=== PATIENT | female | born 1945 | race Caucasian/White ===

== ENCOUNTER → 2016-04-06 | Outpatient (CLI) | payer OTHER ==
--- NOTE | 2016-04-06 18:48 | DX ---
Chest, PA and Lateral Upright Views April 06, 2016 at 6:20 p.m. Clinical History: 70-year-old female with a cough for two weeks, with bronchitis and sinusitis. Comparison Study: Chest, dated March 29, 2008. Findings: The cardiac and mediastinal silhouettes are normal in size. There is no focal alveolar cons olidation, pleural effusion, peripheral interstitial edema, or pneumothorax. There are degenerative f eatures of the thoracic spine. Impression: No acute abnormality.
== END ==
LOC: GIMAGING 18:19
PROVIDERS: ATTEND Nurse Practitioner Family
DX: R05 Cough (principal)
CPT/HCPCS: 71020-PO

== ENCOUNTER → 2016-04-08 | Outpatient (CLI) | payer OTHER ==
--- NOTE | 2016-04-08 13:06 | MA ---
Screening Digital Mammogram With iCAD Analysis Clinical Indications: Routine screening. The patient has had reduction mammoplasty. Technique: Standard cephalocaudal projections are obtained. Digital breast tomosynthesis was performe d in the MLO projection with reconstruction at 1.0 mm slice thickness and composite MLO views reconst ructed. This examination is processed by the iCAD computer aided detection system. Comparison: December 2014, December 2013, August 2012, July 2011, January 2010, January 2009. Breast density: Type A: Fatty. Findings: CAD was reviewed. No masses, suspicious calcifications or secondary signs of malignancy are seen. There has been no significant change in the appearance of either breast. Impression: Negative mammogram. BI-RADS 1. Recommendation: Routine mammographic screening in one year. [facility] will send a result letter to the patient. Negative mammography should not preclude additional workup of a clinically suspicious finding. The patient's information is entered into a reminder system with a target due date for her next mammo gram.
== END ==
LOC: FIMAGING 10:17
DX: Z12.31 Encounter for screening mammogram for malignant neoplasm of breast (principal)
CPT/HCPCS: G0202

== ENCOUNTER 2016-11-14 11:27 | Day surgery (SDC) | payer OTHER ==
[2016-11-14] MEDS ORDERED: ceFAZolin 2 GM/DEXTROSE 100 ML IV ONE (12:03)
--- NOTE | 2016-11-14 13:12 | PDHPUP ---
History & Physical Update H&P update statement: This history and physical update is based on an assessment of the patient which was completed after admission or registration (within 24 hours), but prior to the surgery/procedure. H&P update: no change in patient's condition since H&P completed
[2016-11-14] MEDS ORDERED: LR 1,000 ML IV ONE (14:00)
[2016-11-14] MEDS ORDERED: LIDOCAINE 1% 2 ML INJ ID PRN (14:10)
--- NOTE | 2016-11-14 15:01 | PDANEPAE ---
ANE Past Medical History - Cardiovascular History Hx Hypertension: Yes Hx Arrhythmias: No Hx Chest Pain: No Hx Coronary Artery / Peripheral Vascular Disease: No Hx CHF / Valvular Disease: No Hx Palpitations: No - Pulmonary History Hx COPD: No Hx Asthma/Reactive Airway Disease: Yes Hx Recent Upper Respiratory Infection: No Hx Oxygen in Use at Home: No Hx Sleep Apnea: No Sleep Apnea Screening Result - Last Documented: Negative Pulmonary History Comment: MILD ASTHMA ENVIRONMENTAL TRIGGERS - Neurologic History Hx Cerebrovascular Accident: No Hx Seizures: No Hx Dementia: No - Endocrine History Hx Diabetes: Yes Endocrine History Comment: NIDDM. HYPOTHYROID - Renal History Hx Renal Disorders: Yes Renal History Comment: UA INCONT ISSUES - Cancer History Hx Cancer: No - GI History Hx Gastrointestinal Disorders: No Gastrointestinal History Comment: COLONOSCOPY X3 - Other Health History Other Health History: ESSENTIAL TREMOR GETS BOTOX INJECTION 4X YR MOST RECENT 2016. SPINAL STENOSIS. DRY EYE - Chronic Pain History Chronic Pain: No - Surgical History Prior Surgeries: UMBILICAL HERNIA REPAIR 2006. HYSTERECTOMY/BLADDER REPAIR. GALINA BREAST REDUCTION. RITIKA. T & A. LASIX OU ANE Review of Systems - Exercise capacity METS (RN): 4 METS ANE Patient History - Allergies Allergies/Adverse Reactions: amoxicillin Allergy (Verified 11/14/16 12:21) ampicillin Allergy (Verified 11/14/16 12:21) Penicillins Allergy (Verified 11/14/16 12:20) - Home Medications Home Medications: Estradiol HS 11/05/16 [Last Taken Unknown] Levothyroxine DAILY06 11/05/16 [Last Taken Unknown] Metformin HCl ER HS 11/05/16 [Last Taken Unknown] Paxil HS 11/05/16 [Last Taken Unknown] Restasis Opht Drops(*) DAILY 11/05/16 [Last Taken Unknown] TOPIRAMATE DAILY06 11/05/16 [Last Taken Unknown] Triamterene/Hydrochlorothiazid DAILY06 11/05/16 [Last Taken Unknown] Verapamil DAILY06 11/05/16 [Last Taken Unknown] - NPO status NPO Since - Liquids (Date): 11/13/16 NPO Since - Liquids (Time): 22:00 NPO Since - Solids (Date): 11/13/16 NPO Since - Solids (Time): 18:00 - Smoking Hx Smoking Status: Never smoked ANE Labs/Vital Signs - Vital Signs Blood Pressure: 165/79 Heart Rate: 69 Respiratory Rate: 14 O2 Sat (%): 92 Height: 157.48 cm Weight: 74.389 kg ANE Physical Exam - Airway Neck exam: FROM Mallampati Score: Class 2 - ASA Status ASA Status: III
[2016-11-14] MEDS ORDERED: BUPIVACAINE 0.25% 30 ML SDV ONE ×2 (15:05→15:09)
[2016-11-14] MEDS ORDERED: ESTROGENS,CONJUGATED 30 GM CRTUBE VG ONE (15:06)
[2016-11-14] MEDS ORDERED: MIDAZOLAM 2 MG/2 ML VIAL ONE (15:06)
[2016-11-14] MEDS ORDERED: fentaNYL 100 MCG/2 ML INJ ONE (15:08)
[2016-11-14] MEDS ORDERED: PROPOFOL 200 MG/20 ML VIAL ONE (15:11)
[2016-11-14] MEDS ORDERED: METOCLOPRAMIDE 10 MG/2 ML VIAL ONE (15:45)
[2016-11-14] MEDS ORDERED: ONDANSETRON 4 MG/2 ML VIAL ONE (15:45)
--- NOTE | 2016-11-14 16:41 | POSTOPPROG ---
Post Op Note Date of Operation: 11/14/16 Surgeon: Lori Bright (# [id number]) Anesthesia: LMA Pre-op Diagnosis: RODGER Post-op Diagnosis: RODGER Procedure: Retropubic urethral sling, cysto Findings: See op note Inf/Abcess present in the surg proc area at time of surgery?: No EBL: 50-100 (50 cc) Complications: None Specimen(s): None
[2016-11-14] MEDS ORDERED: PROMETHAZINE HCL 25 MG/ML INJ IVP PRN (16:57)
[2016-11-14] MEDS ORDERED: NALOXONE HCL 0.4 MG/ML INJ IVP PRN (16:57)
[2016-11-14] MEDS ORDERED: LR 500 ML IV PRN (16:57)
[2016-11-14] MEDS ORDERED: fentaNYL 100 MCG/2 ML INJ IVP PRN (16:57)
[2016-11-14] MEDS ORDERED: ONDANSETRON 4 MG/2 ML VIAL IVP PRN (16:57)
--- NOTE | 2016-11-14 16:58 | POSTANESTH ---
Post Anesthetic Evaluation Cardiovascular Status: Normal, Stable Respiratory Status: Normal, Stable Level of Consciousness/Mental Status: Can Participate in Eval Pain Control: Adequate, Prn Tx Ordered Nausea/Vomiting Control: Adequate, Prn Tx Ordered Complications Possibly Related to Anesthesia: None Noted
[2016-11-14 17:33] VITALS: TEMP 97.7
[2016-11-14] MEDS ORDERED: HYDROCODONE/APAP 10/325 TAB PO PRN (17:35)
[2016-11-14] MEDS ORDERED: HYDROCODONE/APAP 10/325 TAB ONE (17:40)
[2016-11-14 17:44] VITALS: O2SAT 93
--- NOTE | 2016-11-14 18:36 | GOP ---
[f rep st] OPERATIVE REPORT DATE OF OPERATION: 11/14/2016 SURGEON: Lori Bright MD ANESTHESIA: Laryngeal mask. PREOPERATIVE DIAGNOSIS: Stress urinary incontinence. POSTOPERATIVE DIAGNOSIS: Stress urinary incontinence. PROCEDURE PERFORMED: 1. Transvaginal retropubic urethral sling. 2. Cystourethroscopy. FINDINGS: Mild cystocele in dorsal lithotomy position under anesthesia. Otherwise, the patient was noted to have postmenopausal atrophic vaginitis. SPECIMENS: None. ESTIMATED BLOOD LOSS: 50 cc. INDICATIONS FOR THE PROCEDURE: This woman has had issues with stress incontinence and has opted to undergo surgical therapy. The indications for the procedures as well as potential risks and complications were discussed with the patient preoperatively. She appeared to understand, her questions were answered, and she wished to proceed. Written informed surgical consent was thereafter obtained. DESCRIPTION OF PROCEDURE: The patient is brought to the operating room and administered laryngeal mask anesthesia. She was carefully placed in the low lithotomy position on the operating room table with Ja stirrups. The abdomen and genitalia were sterilely prepped with Betadine scrub and paint and then draped in the usual sterile fashion. 2-0 silk sutures were used for labial retraction and removed at the conclusion of the case. A weighted vaginal speculum was placed in the posterior vaginal vault. A 16-Uzbek Stein catheter was placed in the bladder and the bladder was drained of all urine and then clamped. It was intermittently unclamped and drained throughout the operation. The bladder neck, urethra, and urethral meatus were visualized along the anterior vaginal wall. A total of 15 cc of 0.5% Marcaine with epinephrine was used for local anesthetic along the anterior vaginal wall and for hydrodistention purposes. A longitudinal midline anterior vaginal wall incision was made over the mid urethra with a scalpel. Metzenbaum scissors were then used to dissect along the periurethral fascia lateral to the urethra on each side. I was ultimately able to gently dissect until the inferior pubis could be palpated through the incision. This was done bilaterally. The lower abdominal midline was then identified. Two small nicks in the skin were made approximately 1.5 cm lateral to the suprapubic midline on each side just cephalad to the superior margin of the pubic bone. A hemostat was used to dissect the subcutaneous tissue. The patient was then placed in steep Trendelenburg position. The SPARC retropubic urethral sling system was then brought onto the field. The trocars with the sling system were then placed from the abdominal wound and guided with my finger through the vaginal incision on each side. Before doing this, the bladder was completely drained via the Stein catheter. Once the trocars were in place, the Stein was removed and cystoscopy performed with a 70 degree lens and a 25-Uzbek sheath. Urethra was unremarkable. The bladder revealed a small moira through the mucosa along the right anterolateral aspect as a result of the right-sided trocar. This trocar was then removed and repositioned more laterally. Cystoscopy was again performed and the bladder was intact without any evidence of foreign body. The Stein catheter was then reinserted and the bladder drained. The retropubic urethral mesh was then brought onto the field and secured to the trocars in appropriate fashion. The trocars were then pulled through the anterior abdominal wall in order to bring the mesh through the retropubic space lateral to the urethra on each side. Care was taken to ensure that the mesh was not twisted. The excess plastic was then cut in the suprapubic region with scissors. The remaining plastic was then removed by grabbing the plastic on each side with hemostatic clamps. However, before doing so, an 8 Hegar dilator was placed between the mesh at the level of the mid urethra and the urethra itself. The mesh was then confirmed to be in proper position along the mid urethra without excessive tension. The Hegar dilator was removed. The excess mesh was cut from the skin surface along the anterior abdominal wall. Hemostasis was present at this point. The anterior vaginal incision was closed with running 2-0 Vicryl suture. The suprapubic incisions were closed with 4-0 Monocryl subcuticular suture in a running fashion , followed by application of Dermabond. The Stein catheter was connected to gravity drainage and the urine was completely clear at this point. A Premarin- impregnated vaginal packing was then inserted. The labial retraction stitches were removed. The patient was then taken out of dorsal lithotomy position and transferred to her bed. She was awakened. She tolerated the procedure well overall. COMPLICATIONS: None. DISPOSITION: She was transferred to recovery in stable condition and will be given instructions to remove the vaginal packing in 24 hours and remove the Stein catheter in 72 hours. /[id number]/MODL MTDD
[2016-11-14 19:03] VITALS: BP 165/68; PULSE 58; RESP 15
== END 2016-11-14 19:04 | disposition home or self-care (01) ==
LOC: FSGY 11:27
PROVIDERS: ATTEND Specialist
PROC: 0TUC0JZ Supplement Bladder Neck with Synthetic Substitute, Open Approach (ICD-10-PCS; principal; 2016-11-14 13:00)
DX: N39.3 Stress incontinence (female) (male) (principal); N81.11 Cystocele, midline; N95.2 Postmenopausal atrophic vaginitis; R33.9 Retention of urine, unspecified; E11.9 Type 2 diabetes mellitus without complications; I10 Essential (primary) hypertension; E03.9 Hypothyroidism, unspecified; E78.5 Hyperlipidemia, unspecified; Z87.440 Personal history of urinary (tract) infections; Z88.0 Allergy status to penicillin
CPT/HCPCS: C1771; J0171; J0690; J2250; J2405; J2704; J2765; J3010

== ENCOUNTER → 2017-01-02 | Outpatient (CLI) | payer OTHER | LOC: FIMAGING 13:24 | DX: M25.561 Pain in right knee (principal); M25.562 Pain in left knee | CPT/HCPCS: 36415-PO ==

== ENCOUNTER → 2017-08-05 | Outpatient (CLI) | payer OTHER | LOC: FIMAGING 14:05 | PROVIDERS: ATTEND Internal Medicine | DX: Z12.31 Encounter for screening mammogram for malignant neoplasm of breast (principal) ==

== ENCOUNTER 2018-05-19 07:49 | Day surgery (SDC) | payer OTHER ==
--- NOTE | 2018-05-19 07:56 | PDHPUP ---
History & Physical Update H&P update statement: This history and physical update is based on an assessment of the patient which was completed after admission or registration (within 24 hours), but prior to the surgery/procedure. H&P update: H&P reviewed & patient examined, no change in patient's condition since H&P completed
--- NOTE | 2018-05-19 07:56 | PDGENHP ---
History and Physical History and Physical: 72 Y F c ovarian cancer needs venous access port to begin chemotherapy. PMH: HTN, DM, hypothyroid, essential tremor. PSH: hysterectomy 25 Y ago for fibroids, tonsils, kanchan, eye, bladder sling. Meds: advil, esradiaol, levothyroxine, metformin paroxetine, topiramate, preservision, triamterene/hctz, verapamil. All: PCN, amoxicillin Social: , retired etiology teacher Fam: mom colon, possibly ovarian.. PE: alert, nad ncat, mmm ctab rrr abd soft, nt ext wwp skin warm and dry nl mood and affect 72 Y F c ovarian CA. Power port placement c flouro. Risks and options discussed.
[2018-05-19] MEDS ORDERED: VANCOMYCIN PHARMACY TO DOSE MISC ONE (07:57)
[2018-05-19] MEDS ORDERED: LR 1,000 ML IV ONE (07:58)
[2018-05-19] MEDS ORDERED: BUPIVACAINE 0.5% 30 ML SDV ONE (08:06)
[2018-05-19] MEDS ORDERED: VANCOMYCIN HCL/NORMAL SALINE 250 ML IV ONE (08:30)
--- NOTE | 2018-05-19 09:13 | PDANEPAE ---
ANE History of Present Illness ovarian Ca s/f R SC Port placement ANE Past Medical History - Cardiovascular History Hx Hypertension: Yes Hx Arrhythmias: No Hx Chest Pain: No Hx Coronary Artery / Peripheral Vascular Disease: No Hx CHF / Valvular Disease: No Hx Palpitations: No - Pulmonary History Hx COPD: No Hx Asthma/Reactive Airway Disease: Yes Hx Recent Upper Respiratory Infection: No Hx Sleep Apnea: No Pulmonary History Comment: MILD ASTHMA ENVIRONMENTAL TRIGGERS - Neurologic History Hx Cerebrovascular Accident: No Hx Seizures: No Hx Dementia: No - Endocrine History Hx Diabetes: Yes Endocrine History Comment: NIDDM. HYPOTHYROID - Renal History Hx Renal Disorders: Yes Renal History Comment: UA INCONT ISSUES - Liver History Hx Hepatic Disorders: No - Neurological & Psychiatric Hx Hx Neurological and Psychiatric Disorders: No - Cancer History Hx Cancer: No - GI History Hx Gastrointestinal Disorders: No Gastrointestinal History Comment: COLONOSCOPY X3 - Other Health History Other Health History: ESSENTIAL TREMOR GETS BOTOX INJECTION 4X YR MOST RECENT 2016. SPINAL STENOSIS. DRY EYE - Chronic Pain History Chronic Pain: No - Surgical History Prior Surgeries: UMBILICAL HERNIA REPAIR 2006. HYSTERECTOMY/BLADDER REPAIR. GALINA BREAST REDUCTION. RITIKA. T & A. LASIX OU ANE Review of Systems Review of Systems: - Exercise capacity METS (RN): 4 METS ANE Patient History - Allergies Allergies/Adverse Reactions: amoxicillin Allergy (Verified 11/14/16 12:21) ampicillin Allergy (Verified 11/14/16 12:21) Penicillins Allergy (Verified 11/14/16 12:20) - Home Medications Home medications: home medication list seen and reviewed Home Medications: Estradiol HS 11/05/16 [Last Taken 05/18/18] Levothyroxine DAILY06 11/05/16 [Last Taken 05/19/18] Metformin HCl ER HS 11/05/16 [Last Taken 05/18/18] Paxil HS 11/05/16 [Last Taken 05/18/18] Restasis Opht Drops(*) DAILY 11/05/16 [Last Taken 05/18/18] TOPIRAMATE DAILY06 11/05/16 [Last Taken 05/19/18] Triamterene/Hydrochlorothiazid DAILY06 11/05/16 [Last Taken 05/19/18] Verapamil DAILY06 11/05/16 [Last Taken 05/19/18] - NPO status NPO Status: no food or drink >8 hours NPO Since - Liquids (Date): 05/19/18 NPO Since - Liquids (Time): 05:45 (meds with sips) NPO Since - Solids (Date): 05/18/18 NPO Since - Solids (Time): 18:00 - Anes Hx Anes Hx: no prior problems - Smoking Hx Smoking Status: Never smoked - Alcohol Use Alcohol Use: Rarely - Family Anes Hx Family Anes Hx: none ANE Labs/Vital Signs - Vital Signs Blood Pressure: 153/67 Heart Rate: 65 Respiratory Rate: 14 O2 Sat (%): 95 Height: 157.48 cm Weight: 70.307 kg ANE Physical Exam - Airway Neck exam: FROM Mallampati Score: Class 2 Mouth exam: poor dentition - Pulmonary Pulmonary: no respiratory distress - Cardiovascular Cardiovascular: regular rate and rhythym - ASA Status ASA Status: III ANE Anesthesia Plan Anesthesia Plan: GA w LMA (possibly propofol only) Total IV Anesthesia: Yes
[2018-05-19] MEDS ORDERED: PROPOFOL/EMULSION 500 MG/50 ML BOTTLE IV ONE (10:03)
[2018-05-19] MEDS ORDERED: fentaNYL 100 MCG/2 ML INJ ONE (10:04)
[2018-05-19] MEDS ORDERED: LIDOCAINE 2% 100 MG/5 ML SYR ONE (10:06)
--- NOTE | 2018-05-19 10:34 | POSTOPPROG ---
Post Op Note Date of Operation: 05/19/18 Surgeon: Néstor Yeager Anesthesia: GET(General Endotracheal) Pre-op Diagnosis: ovarian CA Post-op Diagnosis: same Procedure: power port placement with flouro Findings: good position and flow Inf/Abcess present in the surg proc area at time of surgery?: No EBL: Minimal Complications: none
[2018-05-19] MEDS ORDERED: HYDROCODONE/APAP 5/325 TAB PO PRN (11:23)
[2018-05-19] MEDS ORDERED: ACETAMINOPHEN 500 MG TAB PO PRN (11:23)
[2018-05-19] MEDS ORDERED: ALBUTEROL 3 ML DEYVIAL IH PRN (11:23)
[2018-05-19] MEDS ORDERED: ONDANSETRON 4 MG/2 ML VIAL IVP PRN (11:23)
[2018-05-19] MEDS ORDERED: NALOXONE HCL 0.4 MG/ML INJ IVP PRN (11:23)
[2018-05-19] MEDS ORDERED: PROMETHAZINE HCL 25 MG/ML INJ IVP PRN (11:23)
[2018-05-19] MEDS ORDERED: METOCLOPRAMIDE 10 MG/2 ML VIAL IVP PRN (11:23)
[2018-05-19] MEDS ORDERED: fentaNYL 100 MCG/2 ML INJ IVP PRN (11:23)
[2018-05-19] MEDS ORDERED: PHENYLEPHRINE HCL 100 MCG/ML SYR IVP PRN (11:23)
[2018-05-19] MEDS ORDERED: oxyCODONE IR 5 MG TAB PO PRN (11:23)
[2018-05-19] MEDS ORDERED: LABETALOL HCL 5 MG/ML 20 ML MDV IVP PRN (11:23)
[2018-05-19] MEDS ORDERED: LR 500 ML IV PRN (11:23)
[2018-05-19] MEDS ORDERED: MEPERIDINE 25 MG/0.5 ML AMP IVP PRN (11:23)
[2018-05-19] MEDS ORDERED: DEXAMETHASONE 4 MG/ML VIAL IVP PRN (11:23)
[2018-05-19 12:26] VITALS: BP 132/65
--- NOTE | 2018-05-21 06:10 | GOP ---
[f rep st] OPERATIVE REPORT DATE OF OPERATION: 05/19/2018 SURGEON: Néstor Yeager MD ANESTHESIOLOGIST: Dr. Medrano. PREOPERATIVE DIAGNOSIS: Ovarian cancer. POSTOPERATIVE DIAGNOSIS: Ovarian cancer. PROCEDURE PERFORMED: Right subclavian port placement with fluoroscopic guidance. FINDINGS: The patient was found to have good position and flow of the catheter. DESCRIPTION OF PROCEDURE: The patient was taken to the operating room where she received IV sedation and monitored anesthesia care by Dr. Medrano. She was placed in supine position, prepped and draped i n the usual sterile fashion. Operative site was infiltrated with 0.5% Marcaine. Then, a direct stic k was made in the right subclavian vein. Guidewire was introduced and passed into the right atrium. Position was confirmed with fluoroscopy. A subcu pocket was made in the 2nd intercostal space, agai n using 0.5% Marcaine. A port tubing was passed from that pocket to the subclavian insertion site. It was trimmed to the appropriate length using fluoroscopic guidance and then introduced through the introducer sheath and dilator system into the right atrium. Good backflow was achieved. The cathete r was flushed with heparin and saline. Port was secured to the fascia with 3-0 Vicryl sutures and th e pocket was closed with 3-0 Vicryl for the subcu, 4-0 Prolene subcuticular stitch for the skin. The entrance site was closed with 4-0 Prolene mattress suture. All wounds were infiltrated with 0.5% Ma rcaine. She tolerated the procedure, taken to the recovery room in good condition. There were no co mplications. Copy requested to: Dr. Montanez /[id number]/MODL
== END 2018-05-19 12:15 | disposition home or self-care (01) ==
LOC: FSGY 07:49
PROVIDERS: ATTEND Surgery
PROC: B5181ZA Fluoroscopy of Superior Vena Cava using Low Osmolar Contrast, Guidance (ICD-10-PCS; principal; 2018-05-19 09:00)
PROC: 0JH60XZ Insertion of Tunneled Vascular Access Device into Chest Subcutaneous Tissue and Fascia, Open Approach (ICD-10-PCS; principal; 2018-05-19 09:00)
PROC: 02HV33Z Insertion of Infusion Device into Superior Vena Cava, Percutaneous Approach (ICD-10-PCS; principal; 2018-05-19 09:00)
DX: C56.9 Malignant neoplasm of unspecified ovary (principal); I10 Essential (primary) hypertension; E03.9 Hypothyroidism, unspecified; E11.9 Type 2 diabetes mellitus without complications; G25.0 Essential tremor; Z79.84 Long term (current) use of oral hypoglycemic drugs; Z80.0 Family history of malignant neoplasm of digestive organs; Z90.710 Acquired absence of both cervix and uterus; Z88.0 Allergy status to penicillin
CPT/HCPCS: C1788; J1642; J2001; J2704; J3010; J3370

== ENCOUNTER → 2018-05-29 | Outpatient (CLI) | payer OTHER | LOC: FIMAGING 09:29 | PROVIDERS: ATTEND Nurse Practitioner | DX: M79.89 Other specified soft tissue disorders (principal) ==